=== PATIENT | male | born 1945 | race Caucasian/White ===

== ENCOUNTER 2018-06-13 09:43 | Outpatient (CLI) | payer MEDICARE, BC ==
--- NOTE | 2018-06-13 14:18 | CT ---
CT CHEST NONCONTRAST PULMONARY LUNG SCAN LOW DOSE: HISTORY: Tobacco abuse. FINDINGS: No comparison. No focal parenchymal lung mass or nodule are apparent. Lungs are slightly hyperinfla sally. Linear interstitial thickening extends to the pleural surface throughout each lung, more pronou nced at the bases. Additional mild atelectasis is present at each lung base. No bronchiectasis is a pparent. No pleural fluid or pneumothorax. Lack o contrast limits evaluation of the soft tissues. Nonspecific lymph nodes are scattered about t he mediastinum. There is calcification in the arterial structures including the coronary arteries. IMPRESSION: 1. Lung RADS category 1. Negative. Suggest routine followup. 2. Lung RADS category S: evidence of interstitial lung disease. 3. Atherosclerosis. POS: [facility]
== END 2018-06-13 09:44 | disposition home or self-care (01) ==
LOC: CT 09:43
PROVIDERS: ATTEND Family Medicine
DX: Z12.2 Encounter for screening for malignant neoplasm of respiratory organs (principal); Z87.891 Personal history of nicotine dependence; J84.9 Interstitial pulmonary disease, unspecified; I25.10 Atherosclerotic heart disease of native coronary artery without angina pectoris
CPT/HCPCS: G0297

== ENCOUNTER 2018-12-08 12:03 | Emergency (ER) | payer MEDICARE, BC ==
[2018-12-08 12:41] LABS: #Basophils 0.1 thou/uL (0.0-0.2); #Eosinphils 0.4 thou/uL (0.0-0.7); #Lymphocytes 1.3 thou/uL (1.20-3.40); #Monocytes 0.4 thou/uL (0.11-0.59); #Neutrophils 5.4 thou/uL (1.40-6.50); %Basophils 1.3 % (0.0-1.0); %Eosinophils 4.9 % (0.0-10.0); %Lymphocytes 17.6 % (21.0-51.0); %Monocytes 5.8 % (0.0-10.0); %Neutrophils 70.4 % (42.0-75.0); Hemoglobin 11.9 g/dL (14.0-18.0); Mean Corpuscular HGB CONC 33.9 g/dL (32.0-36.0); Mean Corpuscular Hemoglobin 31.3 pg (27.0-31.0); Mean Corpuscular Volume 92.4 fL (78.0-98.0); Mean Platelet Volume 7.4 fL (7.4-10.4); Platelet Count 245 thou/uL (130-400); RBC Distribution Width 13.2 % (11.5-14.5); Red Blood Cell (RBC) Count 3.78 mill/uL (4.70-6.10); White Blood Cell (WBC) Count 7.6 thou/uL (4.8-10.8)
[2018-12-08 12:47] LABS: Prothrombin Time 13.6 SEC (12.0-14.7)
[2018-12-08 12:48] LABS: PTT 28.2 SEC (22.9-36.1)
[2018-12-08 12:52] LABS: Anion Gap 16 mmol/L (10-20); BUN (Urea Nitrogen) 30 mg/dL (8.4-25.7); Calc. Creatinine Clearance 0 mL/min (70-130); Calcium 8.9 mg/dL (7.8-10.44); Carbon Dioxide 25 mmol/L (23-31); Chloride 105 mmol/L (98-107); Estimated GFR-MDRD 50; Glucose 227 mg/dL (83-110); Potassium 4.2 mmol/L (3.5-5.1); Sodium 142 mmol/L (136-145)
--- NOTE | 2018-12-08 13:11 | CT ---
CT Brain WO Con: 12/08/2018 12:21 PM CLINICAL HISTORY: Posttraumatic pain. COMPARISON: None. FINDINGS: Motion artifact limits evaluation. Hemorrhage: None. Ventricular system: Compensatory dilatation related to parenchymal volume loss. Cerebral parenchyma: Slight diminished attenuation of the posterior right cerebral hemisphere may be on the basis of artifact although underlying ischemia is not excluded. Midline shift: None. Mass: No mass effect. Calvarium: Normal. Overlying prominent sized right frontal hematoma. Visualized Paranasal sinuses: Clear. IMPRESSION: No acute intracranial abnormalities. Prominent right frontal scalp hematoma.
--- NOTE | 2018-12-08 13:21 | RAD ---
LEFT HAND 3 VIEWS: Date: 12/08/18 INDICATION: Left hand pain. COMPARISON: None. 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 There is scattered IP osteoarthrosis. No acute fracture or subluxation is evident. IMPRESSION: Scattered osteoarthrosis of the left hand. POS: [facility]
--- NOTE | 2018-12-08 13:25 | CT ---
CERVICAL SPINE CT SCAN WITHOUT IV CONTRAST: Date: 12/08/18 HISTORY: Injury from trauma following a fall. FINDINGS: Generalized disc osteophytosis with some facet arthrosis. Degenerative intraosseous cystic change in the C7 vertebral body. No evidence for acute fracture or facet dislocation. IMPRESSION: No evidence for acute fracture or facet dislocation. Cervical spondylosis and degenerative change. POS: [facility]
[2018-12-08] MEDS ORDERED: Adacel (T-DAP) 0.5 ML SYRINGE ONE (13:26)
[2018-12-08] MEDS ORDERED: Proparacaine 0.5% Opth 15 ML BOT ONE (13:28)
--- NOTE | 2018-12-08 13:33 | CT ---
FACIAL BONES CT SCAN WITHOUT IV CONTRAST: Date: 12/08/18 HISTORY: Injury from trauma secondary to a fall. FINDINGS: Focal anterior scalp hematoma overlying the upper frontal sinus region. No evidence for associated fr acture. No facial bone fracture. The orbits appear intact. No evidence for a mandible fracture. There are arthrosis changes of both right and left temporomandibular joints. Minute sinus mucosal disease. No significant fluid within the sinuses. Visualized orbits are unremarkable. IMPRESSION: Focal frontal scalp hematoma. Bilateral temporomandibular joint arthrosis. No acute facial bone fract ure. POS: [facility]
== END 2018-12-08 13:53 | disposition home or self-care (01) ==
LOC: SCSER 12:03
DX: S63.92XA Sprain of unspecified part of left wrist and hand, initial encounter (principal); S00.03XA Contusion of scalp, initial encounter; S80.211A Abrasion, right knee, initial encounter; E11.22 Type 2 diabetes mellitus with diabetic chronic kidney disease; I12.9 Hypertensive chronic kidney disease with stage 1 through stage 4 chronic kidney disease, or unspecified chronic kidney disease; N18.9 Chronic kidney disease, unspecified; K21.9 Gastro-esophageal reflux disease without esophagitis; E78.5 Hyperlipidemia, unspecified; Z87.891 Personal history of nicotine dependence; W18.30XA Fall on same level, unspecified, initial encounter; Z79.899 Other long term (current) drug therapy; Z79.84 Long term (current) use of oral hypoglycemic drugs
CPT/HCPCS: 36415; 70450; 70486; 72125; 80048; 85025; 85610; 85730; 90471; 90715

== ENCOUNTER 2020-09-13 13:06 | Outpatient (CLI) | payer MEDICARE, BC | END 2020-09-13 13:07 | disposition home or self-care (01) | LOC: CT 13:06 | PROVIDERS: ATTEND Family Medicine | DX: Z12.2 Encounter for screening for malignant neoplasm of respiratory organs (principal); Z87.891 Personal history of nicotine dependence; R91.1 Solitary pulmonary nodule; I31.3 Pericardial effusion (noninflammatory); J84.9 Interstitial pulmonary disease, unspecified | CPT/HCPCS: 71271 ==

== ENCOUNTER 2021-03-05 13:06 | Outpatient (CLI) | payer MEDICARE, BC | END 2021-03-05 13:07 | disposition home or self-care (01) | LOC: BICCT 13:06 | PROVIDERS: ATTEND Family Medicine | DX: Z12.2 Encounter for screening for malignant neoplasm of respiratory organs (principal); Z87.891 Personal history of nicotine dependence | CPT/HCPCS: 71271 ==

== ENCOUNTER 2021-06-03 18:00 | Outpatient (CLI) | payer MEDICARE, BC | END 2021-06-03 18:01 | disposition home or self-care (01) | LOC: SLEEPLAB 18:00 | PROVIDERS: ATTEND Internal Medicine Pulmonary Disease | DX: G47.33 Obstructive sleep apnea (adult) (pediatric) (principal); E66.9 Obesity, unspecified; R06.83 Snoring; R09.02 Hypoxemia | CPT/HCPCS: 95806 ==

== ENCOUNTER 2022-03-23 14:19 | Outpatient (CLI) | payer MEDICARE, BC | END 2022-03-23 14:20 | disposition home or self-care (01) | LOC: BICCT 14:19 | PROVIDERS: ATTEND Internal Medicine Pulmonary Disease | DX: R91.1 Solitary pulmonary nodule (principal); J84.10 Pulmonary fibrosis, unspecified; I31.39 Other pericardial effusion (noninflammatory); R91.8 Other nonspecific abnormal finding of lung field | CPT/HCPCS: 71250 ==

== ENCOUNTER 2022-05-28 15:30 | Outpatient (CLI) | payer MEDICARE, BC ==
[2022-05-28 16:20] LABS: Hemoglobin 12.7 g/dL (13.5-17.5); Mean Corpuscular HGB CONC 32.6 g/dL (32.0-36.0); Mean Corpuscular Hemoglobin 31.2 pg (27.0-33.0); Mean Corpuscular Volume 95.6 fl (81.2-95.1); Mean Platelet Volume 10.5 fl (7.4-10.4); Platelet Count 207 10x3/uL (150-450); RBC Distribution Width 13.6 % (11.5-14.5); Red Blood Cell (RBC) Count 4.07 10x6/uL (4.32-5.72); White Blood Cell (WBC) Count 9.4 10x3/uL (3.5-10.5)
[2022-05-28 17:06] LABS: Anion Gap 18 mmol/L (10-20); BUN (Urea Nitrogen) 25 mg/dL (8.4-25.7); Calc. Creatinine Clearance 0 mL/min (70-130); Calcium 8.6 mg/dL (7.8-10.44); Carbon Dioxide 29 mmol/L (23-31); Chloride 98 mmol/L (98-107); Estimated GFR 44; Glucose 112 mg/dL (83-110); Potassium 4.2 mmol/L (3.5-5.1); Sodium 141 mmol/L (136-145)
== END 2022-05-28 15:31 | disposition home or self-care (01) ==
LOC: LABBT 15:30
PROVIDERS: ATTEND Thoracic Surgery (Cardiothoracic Vascular Surgery)
DX: Z01.812 Encounter for preprocedural laboratory examination (principal); I31.39 Other pericardial effusion (noninflammatory)
CPT/HCPCS: 80048; 85027

== ENCOUNTER 2022-07-21 14:36 | Outpatient (CLI) | payer MEDICARE, BC | END 2022-07-21 14:37 | disposition home or self-care (01) | LOC: BICRAD 14:36 | PROVIDERS: ATTEND Family Medicine | DX: L03.032 Cellulitis of left toe (principal); M79.89 Other specified soft tissue disorders ==

== ENCOUNTER 2024-02-09 10:34 | Inpatient (IN) | payer MEDICARE, BC ==
[2024-02-09 11:48] LABS: #Basophils 0.07 10x3/uL (0.0-0.2); %Basophils 0.7 % (0.0-1.0); %Lymphocytes 8.3 % (21.0-51.0); %Monocytes 5.6 % (0.0-10.0); %Neutrophils 83.1 % (42.0-75.0); Hematocrit 36.9 % (42.0-52.0); Hemoglobin 11.5 g/dL (14.0-18.0); Mean Corpuscular HGB CONC 31.2 g/dL (32.0-36.0); Mean Corpuscular Hemoglobin 31.3 pg (27.0-31.0); Mean Corpuscular Volume 100.5 fL (78.0-98.0); Mean Platelet Volume 9.9 fL (7.4-10.4); Platelet Count 202 10x3/uL (130-400); RBC Distribution Width 14.6 % (11.5-14.5); Red Blood Cell (RBC) Count 3.67 mill/uL (4.70-6.10)
[2024-02-09] MEDS ORDERED: Furosemide 40 MG (4 mL) VIAL ONE (11:50)
[2024-02-09] MEDS ORDERED: Enoxaparin 40 MG (0.4 mL) SYRINGE ONE (11:51)
[2024-02-09] MEDS ORDERED: Enoxaparin 100 MG (1 mL) SYRINGE ONE (11:51)
[2024-02-09] MEDS ORDERED: Aspirin Chewable 81 MG TAB ONE (11:51)
[2024-02-09] MEDS ORDERED: Morphine 4 MG/ML VIAL ONE ×2 (11:56→20:04)
[2024-02-09 12:06] LABS: ALT (SGPT) 18 U/L (8-55); AST (SGOT) 24 U/L (5-34); Albumin 2.6 g/dL (3.4-4.8); Alkaline Phosphatase 280 U/L (40-110); Anion Gap 15 mmol/L (10-20); BUN (Urea Nitrogen) 31 mg/dL (8.4-25.7); Bilirubin, Total 1.2 mg/dL (0.2-1.2); Calc. Creatinine Clearance 0 mL/min (70-130); Calcium 8.7 mg/dL (7.8-10.44); Carbon Dioxide 24 mmol/L (23-31); Chloride 104 mmol/L (98-107); Estimated GFR 47; Globulin 4.1 g/dL (2.4-3.5); Glucose 97 mg/dL (83-110); Potassium 4.5 mmol/L (3.5-5.1); Protein, Total 6.7 g/dL (5.8-8.1); Sodium 138 mmol/L (136-145)
[2024-02-09 12:12] LABS: Troponin I Less than 0.010 ng/mL (< 0.028)
[2024-02-09] MEDS ORDERED: Senokot S 8.6-50 MG TAB PO PRN (15:34)
[2024-02-09] MEDS ORDERED: Acetaminophen 325 MG TAB PO PRN (15:34)
[2024-02-09] MEDS ORDERED: Acetaminophen 650 MG Suppository PR PRN (15:34)
[2024-02-09] MEDS ORDERED: Guaifenesin DM 100-10/5 ML UDCUP PO PRN (15:34)
[2024-02-09] MEDS ORDERED: Glucagon 1 MG/ML KIT IM PRN (15:44)
[2024-02-09] MEDS ORDERED: Dextrose 50% Abboject 50 ML SYRINGE SLOW IVP PRN (15:44)
[2024-02-09] MEDS ORDERED: Dextrose 5% in Water 1,000 ML IV PRN (15:44)
[2024-02-09] MEDS ORDERED: Ipratropium/Albuterol 3 ML NEB NEB PRN (16:05)
[2024-02-09 16:41] LABS: Troponin I Less than 0.010 ng/mL (< 0.028)
[2024-02-09] MEDS: Enoxaparin 40 MG (0.4 mL) SYRINGE SC SCH (21:40)
[2024-02-09] MEDS: Insulin Glargine 30 UNITS/0.3 ML VIAL SC SCH (21:41)
[2024-02-09 23:43] LABS: Troponin I Less than 0.010 ng/mL (< 0.028)
[2024-02-10 03:27] LABS: #Basophils 0.09 10x3/uL (0.0-0.2); %Eosinophils 2.7 % (0.0-10.0); %Lymphocytes 12.8 % (21.0-51.0); %Monocytes 6.5 % (0.0-10.0); %Neutrophils 76.8 % (42.0-75.0); Hematocrit 36.6 % (42.0-52.0); Hemoglobin 11.4 g/dL (14.0-18.0); Hemoglobin 11.5 g/dL (14.0-18.0); Mean Corpuscular HGB CONC 31.4 g/dL (32.0-36.0); Mean Corpuscular Hemoglobin 30.7 pg (27.0-31.0); Mean Corpuscular Volume 97.9 fL (78.0-98.0); Mean Platelet Volume 9.9 fL (7.4-10.4); Platelet Count 193 10x3/uL (130-400); Platelet Count 195 10x3/uL (130-400); RBC Distribution Width 14.6 % (11.5-14.5); Red Blood Cell (RBC) Count 3.74 mill/uL (4.70-6.10)
[2024-02-10 04:25] LABS: Sodium 136 mmol/L (136-145)
[2024-02-10 04:26] LABS: Albumin 2.5 g/dL (3.4-4.8); Anion Gap 15 mmol/L (10-20); BUN (Urea Nitrogen) 32 mg/dL (8.4-25.7); Bilirubin, Total 0.8 mg/dL (0.2-1.2); Calc. Creatinine Clearance 65 mL/min (70-130); Calcium 8.6 mg/dL (7.6-10.4); Carbon Dioxide 21 mmol/L (23-31); Chloride 105 mmol/L (98-107); Estimated GFR 42; Globulin 4.2 g/dL (2.4-3.5); Glucose 117 mg/dL (83-110); Potassium 4.6 mmol/L (3.5-5.1); Protein, Total 6.7 g/dL (5.8-8.1)
[2024-02-10 04:27] LABS: ALT (SGPT) 16 U/L (8-55); AST (SGOT) 27 U/L (5-34); Alkaline Phosphatase 285 U/L (40-110)
[2024-02-10 06:15] VITALS: BMI 37.0
[2024-02-10] MEDS: Enoxaparin 80 MG (0.8 mL) SYRINGE SC SCH (08:16)
[2024-02-10] MEDS: Furosemide 40 MG (4 mL) VIAL SLOW IVP SCH ×2 (08:19→14:18)
[2024-02-10] MEDS: Spironolactone 25 MG TAB PO SCH (11:47)
[2024-02-10] MEDS: Enoxaparin 30 MG (0.3 mL) SYRINGE SC SCH (20:26)
[2024-02-10] MEDS: Enoxaparin 100 MG (1 mL) SYRINGE SC SCH (20:26)
[2024-02-11] MEDS: Losartan 25 MG TAB PO SCH (01:28)
[2024-02-11] MEDS: hydrALAZINE 20 MG/ML VIAL SLOW IVP SCH (01:35)
[2024-02-11 04:30] LABS: #Basophils 0.06 10x3/uL (0.0-0.2); %Basophils 0.6 % (0.0-1.0); %Eosinophils 1.9 % (0.0-10.0); %Lymphocytes 12.1 % (21.0-51.0); Hematocrit 39.1 % (42.0-52.0); Hemoglobin 12.4 g/dL (14.0-18.0); Mean Corpuscular HGB CONC 31.7 g/dL (32.0-36.0); Mean Corpuscular Hemoglobin 30.6 pg (27.0-31.0); Mean Corpuscular Volume 96.5 fL (78.0-98.0); Mean Platelet Volume 9.8 fL (7.4-10.4); Platelet Count 249 10x3/uL (130-400); RBC Distribution Width 14.5 % (11.5-14.5); Red Blood Cell (RBC) Count 4.05 mill/uL (4.70-6.10)
[2024-02-11 04:49] LABS: Anion Gap 17 mmol/L (10-20); BUN (Urea Nitrogen) 28 mg/dL (8.4-25.7); Calc. Creatinine Clearance 92 mL/min (70-130); Calcium 9.5 mg/dL (7.8-10.44); Carbon Dioxide 27 mmol/L (23-31); Chloride 98 mmol/L (98-107); Estimated GFR 64; Glucose 107 mg/dL (83-110); Potassium 4.1 mmol/L (3.5-5.1); Sodium 138 mmol/L (136-145)
[2024-02-11] MEDS ORDERED: Metolazone 2.5 MG TAB PO SCH (08:30)
[2024-02-11] MEDS: dilTIAZem CD 180 MG CAP PO SCH ×2 (09:47→09:48)
[2024-02-11] MEDS: Dapagliflozin Propanediol 10 MG TAB PO SCH (09:49)
[2024-02-11] MEDS: Spironolactone 25 MG TAB PO SCH (09:49)
[2024-02-11] MEDS: Metolazone 2.5 MG TAB PO SCH (11:27)
[2024-02-11] MEDS: Ondansetron ODT 4 MG TAB PO PRN (11:42)
[2024-02-11] MEDS: Furosemide 20 MG (2 mL) VIAL SLOW IVP SCH (14:23)
[2024-02-11] MEDS: Communication Order-Pharmacy FS ONE (15:03)
[2024-02-11] MEDS: Rivaroxaban 10 MG TAB PO SCH (17:55)
[2024-02-11] MEDS: Carvedilol 6.25 MG TAB PO SCH (17:55)
[2024-02-11] MEDS: Acetaminophen/Codeine 30-300mg Tablet PO PRN (17:58)
[2024-02-11] MEDS: Gabapentin 300 MG CAP PO SCH (23:57)
[2024-02-12 05:23] LABS: #Basophils 0.06 10x3/uL (0.0-0.2); %Basophils 0.7 % (0.0-1.0); %Eosinophils 1.8 % (0.0-10.0); %Lymphocytes 14.5 % (21.0-51.0); %Monocytes 9.2 % (0.0-10.0); %Neutrophils 73.3 % (42.0-75.0); Hematocrit 37.1 % (42.0-52.0); Hemoglobin 11.9 g/dL (14.0-18.0); Mean Corpuscular HGB CONC 32.1 g/dL (32.0-36.0); Mean Corpuscular Hemoglobin 30.7 pg (27.0-31.0); Mean Corpuscular Volume 95.9 fL (78.0-98.0); Mean Platelet Volume 9.8 fL (7.4-10.4); Platelet Count 244 10x3/uL (130-400); RBC Distribution Width 14.5 % (11.5-14.5); Red Blood Cell (RBC) Count 3.87 mill/uL (4.70-6.10)
[2024-02-12 05:34] LABS: Anion Gap 14 mmol/L (10-20); BUN (Urea Nitrogen) 33 mg/dL (8.4-25.7); Calc. Creatinine Clearance 66 mL/min (70-130); Calcium 9.1 mg/dL (7.8-10.44); Carbon Dioxide 30 mmol/L (23-31); Chloride 96 mmol/L (98-107); Estimated GFR 44; Glucose 121 mg/dL (83-110); Sodium 136 mmol/L (136-145)
[2024-02-12] MEDS ORDERED: Furosemide 40 MG (4 mL) VIAL SLOW IVP SCH (08:35)
[2024-02-12] MEDS: Furosemide 20 MG (2 mL) VIAL SLOW IVP SCH (09:00)
[2024-02-12] MEDS ORDERED: Furosemide 20 MG (2 mL) VIAL SLOW IVP SCH (14:00)
[2024-02-12] MEDS: cefTRIAXone\\ROCEPHIN 1 GM in Sodium Chloride 0.9% 100 ML IVPB SCH (15:13)
[2024-02-12] MEDS: Azithromycin 500 MG in Sodium Chloride 0.9% 250 ML 250 ML IVPB SCH (16:35)
[2024-02-12] MEDS: Ondansetron PF 4 MG/2 ML Vial IVP PRN (18:37)
[2024-02-12] MEDS: Gabapentin 300 MG CAP PO SCH (21:10)
[2024-02-13 05:42] LABS: Hematocrit 37.2 % (42.0-52.0); Hemoglobin 11.7 g/dL (14.0-18.0); Platelet Count 231 10x3/uL (130-400)
[2024-02-13 05:43] LABS: #Basophils 0.07 10x3/uL (0.0-0.2); %Basophils 0.7 % (0.0-1.0); %Eosinophils 2.3 % (0.0-10.0); %Lymphocytes 15.9 % (21.0-51.0); %Monocytes 10.5 % (0.0-10.0); %Neutrophils 70.1 % (42.0-75.0); Hematocrit 36.8 % (42.0-52.0); Hemoglobin 11.8 g/dL (14.0-18.0); Mean Corpuscular HGB CONC 32.1 g/dL (32.0-36.0); Mean Corpuscular Hemoglobin 30.6 pg (27.0-31.0); Mean Corpuscular Volume 95.6 fL (78.0-98.0); Mean Platelet Volume 9.9 fL (7.4-10.4); Platelet Count 233 10x3/uL (130-400); RBC Distribution Width 14.3 % (11.5-14.5); Red Blood Cell (RBC) Count 3.85 mill/uL (4.70-6.10)
[2024-02-13 06:01] LABS: Anion Gap 17 mmol/L (10-20); BUN (Urea Nitrogen) 46 mg/dL (8.4-25.7); Calc. Creatinine Clearance 51 mL/min (70-130); Calcium 8.7 mg/dL (7.8-10.44); Carbon Dioxide 24 mmol/L (23-31); Chloride 98 mmol/L (98-107); Estimated GFR 31; Glucose 122 mg/dL (83-110); Potassium 4.3 mmol/L (3.5-5.1); Sodium 135 mmol/L (136-145)
[2024-02-13] MEDS: Sodium Chloride 0.9% 1,000 ML IV SCH (09:24)
[2024-02-13] MEDS: Furosemide 20 MG TAB PO SCH (10:10)
[2024-02-13] MEDS: Insulin Lispro 100 UNIT/ML 10 ML VIAL SC PRN (17:25)
[2024-02-14 06:02] LABS: #Basophils 0.11 10x3/uL (0.0-0.2); %Eosinophils 3.2 % (0.0-10.0); %Lymphocytes 16.1 % (21.0-51.0); %Monocytes 9.7 % (0.0-10.0); %Neutrophils 69.5 % (42.0-75.0); Hematocrit 36.5 % (42.0-52.0); Hemoglobin 11.6 g/dL (14.0-18.0); Mean Corpuscular HGB CONC 31.8 g/dL (32.0-36.0); Mean Corpuscular Hemoglobin 30.6 pg (27.0-31.0); Mean Corpuscular Volume 96.3 fL (78.0-98.0); Mean Platelet Volume 9.9 fL (7.4-10.4); Platelet Count 228 10x3/uL (130-400); RBC Distribution Width 14.3 % (11.5-14.5); Red Blood Cell (RBC) Count 3.79 mill/uL (4.70-6.10)
[2024-02-14 06:20] LABS: Anion Gap 16 mmol/L (10-20); BUN (Urea Nitrogen) 54 mg/dL (8.4-25.7); Calc. Creatinine Clearance 46 mL/min (70-130); Calcium 8.6 mg/dL (7.8-10.44); Carbon Dioxide 24 mmol/L (23-31); Chloride 98 mmol/L (98-107); Estimated GFR 28; Glucose 147 mg/dL (83-110); Potassium 4.5 mmol/L (3.5-5.1); Sodium 133 mmol/L (136-145)
[2024-02-14] MEDS: Albumin 25% 25 GM (100 mL) BOT IVPB SCH (12:20)
[2024-02-15 05:19] LABS: #Basophils 0.09 10x3/uL (0.0-0.2); %Eosinophils 2.6 % (0.0-10.0); %Lymphocytes 15.3 % (21.0-51.0); %Monocytes 9.7 % (0.0-10.0); %Neutrophils 70.9 % (42.0-75.0); Hematocrit 35.6 % (42.0-52.0); Hemoglobin 11.3 g/dL (14.0-18.0); Mean Corpuscular HGB CONC 31.7 g/dL (32.0-36.0); Mean Corpuscular Hemoglobin 30.4 pg (27.0-31.0); Mean Corpuscular Volume 95.7 fL (78.0-98.0); Mean Platelet Volume 10.4 fL (7.4-10.4); Platelet Count 202 10x3/uL (130-400); RBC Distribution Width 14.2 % (11.5-14.5); Red Blood Cell (RBC) Count 3.72 mill/uL (4.70-6.10)
[2024-02-15 05:50] LABS: Anion Gap 15 mmol/L (10-20); BUN (Urea Nitrogen) 57 mg/dL (8.4-25.7); Calc. Creatinine Clearance 53 mL/min (70-130); Calcium 8.9 mg/dL (7.8-10.44); Carbon Dioxide 26 mmol/L (23-31); Chloride 97 mmol/L (98-107); Estimated GFR 32; Glucose 162 mg/dL (83-110); Potassium 4.6 mmol/L (3.5-5.1); Sodium 133 mmol/L (136-145)
[2024-02-15] MEDS: Ipratropium/Albuterol 3 ML NEB IPPB SCH (13:21)
[2024-02-15] MEDS: Rivaroxaban 15 MG TAB PO SCH (18:51)
[2024-02-16 04:59] LABS: Hematocrit 35.1 % (42.0-52.0); Hemoglobin 11.1 g/dL (14.0-18.0); Platelet Count 204 10x3/uL (130-400)
[2024-02-16 05:04] LABS: #Basophils 0.09 10x3/uL (0.0-0.2); %Basophils 0.9 % (0.0-1.0); %Lymphocytes 13.6 % (21.0-51.0); %Monocytes 8.5 % (0.0-10.0); %Neutrophils 73.7 % (42.0-75.0); Hematocrit 35.7 % (42.0-52.0); Hemoglobin 11.2 g/dL (14.0-18.0); Mean Corpuscular HGB CONC 31.4 g/dL (32.0-36.0); Mean Corpuscular Volume 95.7 fL (78.0-98.0); Mean Platelet Volume 10.7 fL (7.4-10.4); Platelet Count 207 10x3/uL (130-400); RBC Distribution Width 14.2 % (11.5-14.5); Red Blood Cell (RBC) Count 3.73 mill/uL (4.70-6.10)
[2024-02-16 05:14] LABS: Anion Gap 14 mmol/L (10-20); BUN (Urea Nitrogen) 59 mg/dL (8.4-25.7); Calc. Creatinine Clearance 55 mL/min (70-130); Calcium 9.1 mg/dL (7.8-10.44); Carbon Dioxide 27 mmol/L (23-31); Chloride 97 mmol/L (98-107); Estimated GFR 34; Glucose 147 mg/dL (83-110); Potassium 4.7 mmol/L (3.5-5.1); Sodium 133 mmol/L (136-145)
[2024-02-16] MEDS: Furosemide 20 MG TAB PO SCH (08:58)
[2024-02-16] MEDS ORDERED: Ipratropium/Albuterol 3 ML NEB IPPB PRN (14:14)
[2024-02-17 04:52] LABS: #Basophils 0.11 10x3/uL (0.0-0.2); %Basophils 1.1 % (0.0-1.0); %Eosinophils 3.5 % (0.0-10.0); %Lymphocytes 16.1 % (21.0-51.0); %Monocytes 10.3 % (0.0-10.0); %Neutrophils 68.4 % (42.0-75.0); Hematocrit 36.3 % (42.0-52.0); Hemoglobin 11.4 g/dL (14.0-18.0); Mean Corpuscular HGB CONC 31.4 g/dL (32.0-36.0); Mean Corpuscular Hemoglobin 31.1 pg (27.0-31.0); Mean Corpuscular Volume 99.2 fL (78.0-98.0); Mean Platelet Volume 10.4 fL (7.4-10.4); Platelet Count 222 10x3/uL (130-400); RBC Distribution Width 14.3 % (11.5-14.5); Red Blood Cell (RBC) Count 3.66 mill/uL (4.70-6.10)
[2024-02-17 05:05] LABS: Anion Gap 13 mmol/L (10-20); BUN (Urea Nitrogen) 58 mg/dL (8.4-25.7); Calc. Creatinine Clearance 50 mL/min (70-130); Calcium 9.2 mg/dL (7.8-10.44); Carbon Dioxide 30 mmol/L (23-31); Chloride 96 mmol/L (98-107); Estimated GFR 32; Glucose 159 mg/dL (83-110); Potassium 4.5 mmol/L (3.5-5.1); Sodium 134 mmol/L (136-145)
[2024-02-17 16:47] VITALS: TEMP 97.5
[2024-02-17 17:25] VITALS: BP 171/70
== END 2024-02-17 18:10 | disposition home or self-care (01) | DRG 291 ==
LOC: ERS 10:34 → ERHOLD 14:59 → 2SW 20:45 → OBSVTOIN 02-10 14:20
PROVIDERS: ADMIT Internal Medicine; ATTEND Student in an Organized Health Care Education/Training Program
PROC: 5A09357 Assistance with Respiratory Ventilation, Less than 24 Consecutive Hours, Continuous Positive Airway Pressure (ICD-10-PCS; principal; 2024-02-10)
DX: I13.0 Hypertensive heart and chronic kidney disease with heart failure and stage 1 through stage 4 chronic kidney disease, or unspecified chronic kidney disease (principal); I50.33 Acute on chronic diastolic (congestive) heart failure; J96.01 Acute respiratory failure with hypoxia; N17.9 Acute kidney failure, unspecified; J44.1 Chronic obstructive pulmonary disease with (acute) exacerbation; J44.9 Chronic obstructive pulmonary disease, unspecified; M10.9 Gout, unspecified; F17.210 Nicotine dependence, cigarettes, uncomplicated; E11.40 Type 2 diabetes mellitus with diabetic neuropathy, unspecified; I48.0 Paroxysmal atrial fibrillation; N18.30 Chronic kidney disease, stage 3 unspecified; N18.32 Chronic kidney disease, stage 3b; E11.22 Type 2 diabetes mellitus with diabetic chronic kidney disease; Z79.899 Other long term (current) drug therapy; Z82.49 Family history of ischemic heart disease and other diseases of the circulatory system; Z83.3 Family history of diabetes mellitus; Z79.84 Long term (current) use of oral hypoglycemic drugs; Z79.4 Long term (current) use of insulin; S91.309A Unspecified open wound, unspecified foot, initial encounter; M79.671 Pain in right foot; Z78.9 Other specified health status; Z71.89 Other specified counseling
CPT/HCPCS: 36415; 36416; 71045; 80048; 80053; 83036; 83735; 83880; 84443; 84484; 84550; 85014; 85018; 85025; 85049; 93005; 93306; 94640; 94660; 96372; 96376; 97139; G0378; J0360; J0456; J0696; J1650; J1815; J1940; J2272; J2405; J7030; J7050; J7620; P9047; Q0162

== ENCOUNTER 2024-03-22 14:04 | Outpatient (CLI) | payer MEDICARE, BC | END 2024-03-22 14:05 | disposition home or self-care (01) | LOC: RAD 14:04 | PROVIDERS: ATTEND Physician Assistant | DX: R06.02 Shortness of breath (principal); J90 Pleural effusion, not elsewhere classified; J98.4 Other disorders of lung | CPT/HCPCS: 71046 ==

== ENCOUNTER 2025-01-15 13:31 | Outpatient (CLI) | payer MEDICARE, BC | END 2025-01-15 13:32 | disposition home or self-care (01) | LOC: RAD 13:31 | PROVIDERS: ATTEND Internal Medicine Critical Care Medicine | DX: R06.00 Dyspnea, unspecified (principal) | CPT/HCPCS: 71046 ==